=== PATIENT | female | born 1940 | race Hispanic/Latino ===

== ENCOUNTER 2017-12-13 13:03 | Emergency (ER) | payer MEDICARE, OTHER ==
[2017-12-13] MEDS ORDERED: MORPHINE IV ONE ×2 (14:29→16:28)
--- NOTE | 2017-12-13 14:51 | Emergency Department Report ---
Blank Doc - Documentation Documentation: 77-year-old female status post fall from bed this morning. Patient states is his second time falling out of her bed because it is too high off of the floor. Patient reports not on the back of her head and also back pain. Patient has history of chronic neck pain for which she is currently on pain medications for. Patient denies weakness or numbness in bilateral lower extremities. On exam patient has tenderness in the midline and paraspinal lumbar area. Also has a 4 cm hematoma to the right occipital region of scalp. Patient not currently on blood thinners. Will medicate for pain and obtain head CT and lumbar x-rays.
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
[2017-12-13] MEDS ORDERED: FLEXERIL PO ONE (16:29)
--- NOTE | 2017-12-13 18:19 | Cat Scan Report ---
FINAL REPORT EXAM: CT HEAD/BRAIN WO CON HISTORY: head injury TECHNIQUE: Standard unenhanced CT of the head at 5.0 millimeter axial increments. PRIORS: None. FINDINGS: The ventricular system is normal in size and configuration. There is mild cerebral atrophy. There is no evidence for mass lesion, mass effect, midline shift, acute intracranial hemorrhage, or acute ischemia/ infarction. No evidence for acute skull fracture is seen. No abnormality in the overlying scalp soft tissues is seen. Visualized paranasal sinuses are clear. IMPRESSION: Mild atrophy. No acute intracranial process noted.
[2017-12-13 18:35] VITALS: BP 142/65
--- NOTE | 2017-12-13 18:43 | XRay Report ---
FINAL REPORT EXAM: XR SPINE LUMBOSACRAL 4+V HISTORY: fall TECHNIQUE: Five views lumbosacral spine Comparison: None FINDINGS: Dynamic compression screw left hip. L4/L5 degenerative disc disease. T11 approximately 30 percent compression/wedge fracture, age indeterminate. Grade 1 anterolisthesis L5 on S1. Sacral arches are intact. SI joints are open. Lower lumbar facet osteoarthritis. No pars interarticularis defect. IMPRESSION: 30 percent wedge fracture T11, age indeterminate. Recommend MRI for further assessment if patient is an augmentation candidate. Lower lumbar degenerative disc disease and facet osteoarthritis. Left hip dynamic compression screw.
== END 2017-12-13 19:25 | disposition home or self-care (01) ==
LOC: ED 13:03
DX: S30.810A Abrasion of lower back and pelvis, initial encounter (principal); W01.198A Fall on same level from slipping, tripping and stumbling with subsequent striking against other object, initial encounter; Y93.89 Activity, other specified; Y92.89 Other specified places as the place of occurrence of the external cause; Y99.8 Other external cause status
CPT/HCPCS: 70450; 72110; 96374; 96376; 99284; J2270

== ENCOUNTER 2018-05-05 18:03 | Inpatient (IN) | payer MEDICARE, OTHER ==
[2018-05-05] MEDS ORDERED: ZOFRAN ONE ×2 (18:36→18:39)
[2018-05-05] MEDS ORDERED: ZOFRAN IV ONE (18:58)
[2018-05-05 19:31] LABS: Basophils % (Auto) 0.2 % (0.0-1.8); Eosinophils % (Auto) 0.9 % (0.0-4.3); Hematocrit 39.8 % (30.3-42.9); Hemoglobin 13.7 gm/dl (10.1-14.3); Lymphocytes # (Auto) 1.6 K/mm3 (1.2-5.4); Lymphocytes % (Auto) 28.8 % (13.4-35.0); Mean Corpuscular HGB Conc 35 % (30-34); Mean Corpuscular Volume 96 fl (79-97); Monocytes # (Auto) 0.4 K/mm3 (0.0-0.8); Monocytes % (Auto) 7.1 % (0.0-7.3); Platelet Count 188 K/mm3 (140-440); Red Blood Count 4.13 M/mm3 (3.65-5.03); Red Cell Distribution Width 12.3 % (13.2-15.2)
[2018-05-05 19:50] LABS: Alanine Aminotransferase 19 units/L (7-56); Albumin 4.1 g/dL (3.9-5); BUN/Creatinine Ratio 20; Blood Urea Nitrogen 12 mg/dL (7-17); Hemolysis Index 17
[2018-05-05] MEDS ORDERED: REGLAN IV ONE (20:21)
--- NOTE | 2018-05-05 20:35 | XRay Report ---
FINAL REPORT PROCEDURE: XR CHEST 1V AP TECHNIQUE: Chest radiograph anteroposterior view. CPT 74531 HISTORY: syncope COMPARISON: No prior studies are available for comparison. FINDINGS: Patient is rotated to the right Heart: Normal. Mediastinum/Vessels: Normal. Lungs/Pleural space: Lungs are hyperinflated. There are no confluent infiltrates or mass lesions. Ple ural spaces are clear.. Bony thorax: No acute osseous abnormality. Life support devices: None. IMPRESSION: Limited study due to patient rotation COPD No acute pulmonary process.
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
[2018-05-05] MEDS ORDERED: ASPIRIN PO ONE (22:28)
[2018-05-05] MEDS ORDERED: NACL 0.9% 1000 ML 1,000 ML IV ONE (22:29)
[2018-05-05] MEDS ORDERED: ZOFRAN IV PRN (23:14)
[2018-05-05] MEDS ORDERED: TYLENOL PO PRN (23:14)
[2018-05-05] MEDS ORDERED: SODIUM CHLORIDE FLUSH SYRINGE 10 ML IV PRN (23:14)
--- NOTE | 2018-05-05 23:16 | History and Physical Report ---
History of Present Illness Date of examination: 05/05/18 History of present illness: 78-year-old woman with a history of COPD comes emergency room for evaluation of syncope. The patient was at [employer] eating when she became lightheaded, the son state that she became flushed and nauseated and passed out for 30 mi nutes. She had multiple episodes of nausea vomiting, Review of systems Constitutional: no weight loss, chills, fever Ears, eyes, nose, mouth and throat: no nasal congestion, no nasal discharge, no sinus pressure, no vision change, no red eye. Neck: No neck pain or rigidity. Cardiovascular: no palpitations, chest pain Respiratory: no cough, shortness of breath Gastrointestinal: no hematochezia, abdominal pain Genitourinary : no frequency , no hematuria Musculoskeletal: no joint swelling or muscle ache Integumentary: no rash, no pruritis Neurological: no parathesias, no focal weakness Endocrine: no cold or heat intolerance, no polyuria or polydipsia Hematologic/Lymphatic: no easy bruising, no easy bleeding, no gland swelling Allergic/Immunologic: no urticaria, no angioedema. PAST MEDICAL HISTORY: COPD PAST SURGICAL HISTORY: Hysterectomy, left hip, cholecystectomy SOCIAL HISTORY: Denies alcohol, drugs, tobacco FAMILY HISTORY: Hypertension Medications and Allergies Allergies Allergy/AdvReac Type Severity Reaction Status Date / Time No Known Allergies Allergy Unverified 12/13/17 14:04 Home Medications Medication Instructions Recorded Confirmed Last Taken Type Unobtainable 05/05/18 05/05/18 Unknown History Active Meds: Active Medications Sodium Chloride (Nacl 0.9% 1000 Ml) 1,000 mls @ 125 mls/hr IV ONCE ONE Stop: 05/06/18 06:28 Last Admin: 05/05/18 23:06 Dose: 125 mls/hr Documented by: Exam - Physical Exam Narrative exam: General Apperance: The patient lying in bed, breathing comfortable HEENT: Normocephalic, atraumatic. Pupils equally round and reactive to light, EOMI, no sclericterus or JVD or thyromegaly or nodule. , no carotid bruit, mucous membranes moist, no exudate or erythema Heart: S1-S2, regular is rhythm Lungs: Clear to auscultation bilaterally, breathing comfortable Abdomen: Positive bowel sounds, soft, nontender, nondistended, no organomegaly Extremities: No edema cyanosis clubbing Skin: no rash, nodule, warm and dry Neuro: cranial nerves 2-12 intact, speech is fluent, motor/sensory intact - Constitutional Vitals: Temp Pulse Resp BP Pulse Ox 87 17 129/70 96 05/05/18 21:30 05/05/18 21:30 05/05/18 21:30 05/05/18 21:30 Results - Labs CBC & Chem 7: 05/05/18 19:14 05/05/18 19:14 Labs: Abnormal lab results 05/05/18 05/05/18 Range/Units 19:14 19:14 MCH 33 H (28-32) pg MCHC 35 H (30-34) % RDW 12.3 L (13.2-15.2) % Sodium 133 L (137-145) mmol/L Creatinine 0.6 L (0.7-1.2) mg/dL - Imaging and Cardiology EKG: image reviewed Abdominal x-ray: report reviewed CT Scan - head: report reviewed Assessment and Plan Assessment Syncope COPD, stable Plan Admit to medicine Check cardiac enzymes, echo, carotid Doppler, orthostatics DVT prophylaxis, start IV fluid
[2018-05-05 23:28] LABS: Bilirubin,Urine NEG (Negative); Blood,Urine NEG (Negative); Color,Urine Yellow (Yellow); Mucus,Urine FEW /HPF; Protein,Urine <15 mg/dL mg/dL (Negative); Urobilinogen,Urine < 2.0 mg/dL (<2.0)
[2018-05-05] MEDS ORDERED: NACL 0.9% 1000 ML 1,000 ML IV SCH (23:45)
[2018-05-06 00:18] LABS: Creatine Kinase MB 1.8 ng/mL (0.0-4.0)
[2018-05-06 05:42] LABS: Basophils % (Auto) 0.5 % (0.0-1.8); Eosinophils % (Auto) 0.6 % (0.0-4.3); Hematocrit 37.4 % (30.3-42.9); Hemoglobin 12.8 gm/dl (10.1-14.3); Lymphocytes # (Auto) 1.4 K/mm3 (1.2-5.4); Lymphocytes % (Auto) 30.6 % (13.4-35.0); Mean Corpuscular HGB Conc 34 % (30-34); Mean Corpuscular Volume 98 fl (79-97); Monocytes # (Auto) 0.4 K/mm3 (0.0-0.8); Monocytes % (Auto) 8.9 % (0.0-7.3); Platelet Count 181 K/mm3 (140-440); Red Blood Count 3.83 M/mm3 (3.65-5.03); Red Cell Distribution Width 12.1 % (13.2-15.2)
[2018-05-06 05:53] LABS: Creatine Kinase MB 1.7 ng/mL (0.0-4.0)
[2018-05-06 06:07] LABS: BUN/Creatinine Ratio 15; Blood Urea Nitrogen 9 mg/dL (7-17); Calcium 8.8 mg/dL (8.4-10.2); Hemolysis Index 9
[2018-05-06] MEDS ORDERED: SODIUM CHLORIDE FLUSH SYRINGE 10 ML IV SCH (10:00)
[2018-05-06] MEDS ORDERED: LOVENOX SUB-Q SCH ×2 (10:00)
--- NOTE | 2018-05-06 14:43 | Vascular Lab Report ---
FINAL REPORT EXAM: VL CAROTID DUPLEX BILAT HISTORY: syncope TECHNIQUE: Carotid ultrasound. Degree of carotid stenosis calculated by indirect methods via the pea k systolic velocities of the ICA and CCA and reference with the society of Radiologist and Ultrasound consensus conference radiology 2003. PRIORS: None currently available. FINDINGS: Patient move frequently. RIGHT CCA, ICA, and ECA (cm/s): 147, 87, and 98. Ratio = 0.59. LEFT CCA, ICA, and ECA (cm/s): 131, 119, and 161. Ratio = 0.91. There is plaque in both carotids. Both vertebral arteries demonstrate antegrade flow. Normal spectral rhythm is identified. IMPRESSION: Frequency of patient movement limits evaluation. No hemodynamically significant (>50%) stenosis noted based on the ratios, velocities, and color Do ppler images.
--- NOTE | 2018-05-06 17:17 | Discharge Summary ---
Providers - Providers Date of Admission: 05/05/18 23:14 Date of discharge: 05/06/18 Attending physician: TATE HAZEL Primary care physician: ABDOULAYE LOOMIS Hospitalization Condition: Fair Hospital course: Patient is 78 yo presented to ED after passing out at restaurant. She was evaluated in ED. A cat scan of head was unremarkabe. She was admitted, orthostatics were stable, Echo unremarkable. She was diagnosed with vasovagal syncope and discharged home. Disposition: TO HOME OR SELFCARE - Discharge Diagnoses (1) Syncope Status: Acute Core Measure Documentation - Palliative Care Palliative Care/ Comfort Measures: Not Applicable - Core Measures Any of the following diagnoses?: none Exam - Constitutional Vitals: Temp Pulse Resp BP Pulse Ox 98.0 F 65 20 140/71 94 05/06/18 08:18 05/06/18 16:01 05/06/18 11:16 05/06/18 16:01 05/06/18 16:01 Plan Activity: advance as tolerated Diet: low fat, low cholesterol, low salt Additional Instructions: 1.Follow up with PCP in 1 week Follow up with: ABDOULAYE LOOMIS MD [Primary Care Provider] - 7 Days
[2018-05-08 11:38] VITALS: BP 140/71
== END 2018-05-06 20:54 | disposition home or self-care (01) | DRG 312 ==
LOC: ED 18:03 → 4A 23:14
PROVIDERS: ADMIT Internal Medicine; ATTEND Internal Medicine
DX: R55 Syncope and collapse (principal); J44.9 Chronic obstructive pulmonary disease, unspecified; M19.90 Unspecified osteoarthritis, unspecified site; G89.29 Other chronic pain; M54.9 Dorsalgia, unspecified; Z90.49 Acquired absence of other specified parts of digestive tract; Z90.710 Acquired absence of both cervix and uterus; Z82.49 Family history of ischemic heart disease and other diseases of the circulatory system; Z87.891 Personal history of nicotine dependence
CPT/HCPCS: 36415; 70450; 71045; 80048; 80053; 81001; 82550; 82553; 83690; 84484; 85025; 85379; 93005; 93010; 93306; 93880; 94760; G0378; J1650; J2405; J2765; J7030